=== PATIENT | male | born 1990 | race American Indian/Alaskan Native ===

== ENCOUNTER 2018-11-28 10:12 | Emergency (ER) | payer OTHER ==
[2018-11-28 10:21] VITALS: BP 160/53
[2018-11-28] MEDS ORDERED: XYLOCAINE 1% MPF 5 mL INFILTRATI ONE (10:41)
[2018-11-28] MEDS ORDERED: ZITHROMAX PO ONE (10:41)
[2018-11-28] MEDS ORDERED: ROCEPHIN IM ONE (10:41)
--- NOTE | 2018-11-28 10:41 | Emergency Department Report ---
ED Dysuria HPI - HPI Chief Complaint: Urogenital-Male Stated Complaint: DISCHARGE Time Seen by Provider: 11/28/18 10:40 Duration: 2 Days Severity: Mild Symptoms: Dysuria: Yes, Frequency: No, Suprapubic Pain: No, Flank Pain: No, Fever: No, Hematuria: No, Abdominal Pain: No, Previous UTI's: No Other History: 28 yo sexually active male here with penile discharge and tingl ing on exam. no known exposure. 3 female partners. pmh. none. psh. none. rx. none ED Review of Systems ROS: Stated complaint: DISCHARGE Other details as noted in HPI Comment: All other systems reviewed and negative Eyes: denies: eye pain ENT: denies: throat pain Respiratory: denies: cough Cardiovascular: denies: chest pain Endocrine: denies: flushing Gastrointestinal: denies: nausea Genitourinary: as per HPI, dysuria Musculoskeletal: denies: back pain Skin: denies: rash Neurological: denies: weakness Psychiatric: denies: depression Hematological/Lymphatic: denies: easy bleeding ED Past Medical Hx - Past Medical History Previous Medical History?: No - Surgical History Past Surgical History?: No - Family History Family history: no significant - Social History Smoking Status: Never Smoker Substance Use Type: None - Medications Home Medications: Home Medications Medication Instructions Recorded Confirmed Last Taken Type Doxycycline [Vibramycin CAP] 100 mg PO BID #20 capsule 07/26/13 08/29/13 Unknown Rx Dysuria Exam - Exam General: Vital signs noted. No distress. Alert and acting appropriately. Exam: Yes Moist Mucous Membranes, No CVA Tenderness, No Abdominal Tenderness, No Rigidity or Guarding ED Course Vital Signs 11/28/18 10:19 Temperature 98.1 F Pulse Rate 69 Respiratory 18 Rate Blood Pressure 160/53 O2 Sat by Pulse 96 Oximetry ED Medical Decision Making - Medical Decision Making ua and gc empiric treatment due to public health risk dc home with safe sex education Vital Signs 11/28/18 10:19 Temperature 98.1 F Pulse Rate 69 Respiratory 18 Rate Blood Pressure 160/53 O2 Sat by Pulse 96 Oximetry Critical care attestation.: If time is entered above; I have spent that time in minutes in the direct care of this critically ill patient, excluding procedure time. ED Disposition Clinical Impression: STD (male) Disposition: DC- TO HOME OR SELFCARE Is pt being admited?: No Does the pt Need Aspirin: No Condition: Stable Instructions: Sexually Transmitted Diseases (ED), Safe Sex (ED) Referrals: [facility] [Outside] - 3-5 Days Time of Disposition: 10:48
[2018-11-28 11:28] LABS: Bilirubin,Urine NEG (Negative); Blood,Urine NEG (Negative); Color,Urine Yellow (Yellow); Mucus,Urine FEW /HPF; Protein,Urine <15 mg/dL mg/dL (Negative); Urobilinogen,Urine < 2.0 mg/dL (<2.0)
== END 2018-11-28 11:08 | disposition home or self-care (01) ==
LOC: ED 10:12
DX: A64 Unspecified sexually transmitted disease (principal)
CPT/HCPCS: 81001; 87591; 96372; 99283; J0696

== ENCOUNTER 2018-12-01 09:38 | Emergency (ER) | payer SELFPAY ==
[2018-12-01 09:43] VITALS: BP 122/63
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
[2018-12-01] MEDS ORDERED: IBUPROFEN PO ONE (11:23)
== END 2018-12-01 11:36 | disposition home or self-care (01) ==
LOC: ED 09:38
DX: S16.1XXA Strain of muscle, fascia and tendon at neck level, initial encounter (principal); V89.2XXA Person injured in unspecified motor-vehicle accident, traffic, initial encounter; Y93.89 Activity, other specified; Y92.488 Other paved roadways as the place of occurrence of the external cause; Y99.8 Other external cause status
CPT/HCPCS: 72100; 99283